=== PATIENT | female | born 1970 | race Caucasian/White ===

== ENCOUNTER 2016-12-16 00:23 | Observation (INO) | payer BC ==
--- NOTE | 2016-12-16 00:42 | EDM.PDOC ---
ED HPI GENERAL MEDICAL PROBLEM - General Chief Complaint: General Stated Complaint: UNRESPONSIVE- INTOXICATION Time Seen by Provider: 12/16/16 00:40 Source of Information: Reports: Patient, EMS - History of Present Illness INITIAL COMMENTS - FREE TEXT/NARRATIVE: Her daughter called an ambulance. EMS personnel report that the patient was found on her bed unresponsive. There was an empty bottle of vodka near the bed. There was no evidence of any trauma. There is no history of suspected suicide intent. There is no history of suspected drug overdose in. Patient does have a history of depression. She also has history of alcoholism. - Related Data Allergies Allergy/AdvReac Type Severity Reaction Status Date / Time No Known Allergies Allergy Verified 12/16/16 00:33 Home Meds: Home Meds . [Unable to Verify Home Med List] 12/16/16 [History] Doxepin [SINEquan] 2 cap PO BEDTIME 12/16/16 [History] Past Medical History Psychiatric History: Reports: Other (see below) (Alcoholism, depression) Social & Family History - Alcohol Use Alcohol Use Comment: Reported history of alcoholism. ED ROS GENERAL - Review of Systems Review Of Systems: See Below ED EXAM, GENERAL - Physical Exam Exam: See Below General Appearance: lethargic, other (She does mutter a few words that are difficult to understand her speech is slurred head is atraumatic neck is supple no evidence of extremity torso or head trauma lungs clear to auscultation. Heart regular rhythm without murmur. Abdomen nontender. She smells of alcohol.) Course - Vital Signs Last Recorded V/S: Last Vital Signs Temp 98.5 F 12/16/16 00:35 Pulse 68 12/16/16 02:30 Resp 16 12/16/16 02:30 BP 133/87 12/16/16 02:30 Pulse Ox 96 12/16/16 02:30 - Orders/Labs/Meds Orders: Active Orders 24 hr Category Date Time Status Head wo Cont [CT] Stat Exams 12/16/16 01:51 Taken MVI, Adult with Vitamin K [Infuvite Adult] 10 ml Med 12/16/16 00:57 Active Thiamine [Vitamin B-1] 100 mg Folic Acid 1 mg Sodium Chloride 0.9% [Normal Saline] 1,000 ml IV ONETIME Sodium Chloride 0.9% [Normal Saline] 1,000 ml Med 12/16/16 00:30 Active IV ASDIRECTED Medication Orders Bisacodyl (Dulcolax) 5 mg PO DAILY PRN PRN Reason: Constipation Sodium Chloride (Normal Saline) 1,000 mls @ 150 mls/hr IV ASDIRECTED NIDHI Last Admin: 12/16/16 00:48 Dose: 250 mls/hr Multivitamins/Minerals 10 ml/Thiamine HCl 100 mg/ Folic Acid 1 mg/ Sodium Chloride 1,011.2 mls @ 200 mls/hr IV ONETIME ONE Stop: 12/16/16 06:00 Last Admin: 12/16/16 01:44 Dose: 200 mls/hr Multivitamins/Minerals 10 ml/Thiamine HCl 100 mg/ Folic Acid 1 mg/ Sodium Chloride 1,011.2 mls @ 100 mls/hr IV QAM ONE Stop: 12/17/16 17:06 Ondansetron HCl (Zofran) 4 mg IVPUSH Q4H PRN PRN Reason: Nausea Labs: Laboratory Tests 12/16/16 12/16/16 12/16/16 Range/Units 00:49 00:49 00:55 WBC 8.37 (4.0-11.0) K/uL RBC 4.78 (4.30-5.90) M/uL Hgb 16.3 H (12.0-16.0) g/dL Hct 47.9 H (36.0-46.0) % MCV 100.2 H (80.0-98.0) fL MCH 34.1 H (27.0-32.0) pg MCHC 34.0 (31.0-37.0) g/dL RDW Std Deviation 52.7 (28.0-62.0) fl RDW Coeff of Kelly 14 (11.0-15.0) % Plt Count 187 (150-400) K/uL MPV 11.20 (7.40-12.00) fL Neut % (Auto) 78.2 (48.0-80.0) % Lymph % (Auto) 16.5 (16.0-40.0) % [place] % (Auto) 4.9 (0.0-15.0) % Eos % (Auto) 0.2 (0.0-7.0) % Baso % (Auto) 0.2 (0.0-1.5) % Neut # 6.5 H (1.4-5.7) K/uL Lymph # 1.4 (0.6-2.4) K/uL [place] # 0.4 (0.0-0.8) K/uL Eos # 0.0 (0.0-0.7) K/uL Baso # 0.0 (0.0-0.1) K/uL Nucleated RBC % 0.0 /100WBC Nucleated RBCs # 0 K/uL ABG pH (7.35-7.45) ABG pCO2 (35-45) mmHG ABG pO2 (75-100) mmHG ABG HCO3 (22-26) mEq/L ABG Total CO2 ABG Base Excess (-2.0-2.0) Sodium 141 (136-146) mmol/L Potassium 4.9 (3.5-5.1) mmol/L Chloride 107 (98-110) mmol/L Carbon Dioxide 18 L (21-31) mmol/L BUN 18 (6.0-23.0) mg/dL Creatinine 1.0 (0.6-1.5) mg/dL Est Cr Clr Drug Dosing 64.41 mL/min Estimated GFR (MDRD) 59.2 ml/min Glucose 106 (60-110) mg/dL Calcium 9.4 (8.8-10.8) mg/dL Total Bilirubin 0.6 (0.1-1.5) mg/dL AST 93 H (5-40) IU/L ALT 71 H (8-54) IU/L Alkaline Phosphatase 89 (40-150) Ammonia (14-68) UG/DL Total Protein 8.0 (6.0-8.0) g/dL Albumin 4.3 (3.5-5.0) g/dL Globulin 3.7 H (2.0-3.5) g/dL Albumin/Globulin Ratio 1.2 L (1.3-2.8) HCG, Qual NEGATIVE (NEG) Salicylates (0-20) mg/dL Urine Opiates Screen (NEGATIVE) Ur Oxycodone Screen (NEGATIVE) Urine Methadone Screen (NEGATIVE) Acetaminophen ug/mL Ur Barbiturates Screen (NEGATIVE) Ur Phencyclidine Scrn (NEGATIVE) Ur Amphetamine Screen (NEGATIVE) U Methamphetamines Scrn (NEGATIVE) U Benzodiazepines Scrn (NEGATIVE) U Cocaine Metab Screen (NEGATIVE) U Marijuana (THC) Screen (NEGATIVE) Ethyl Alcohol 24.1 mg/dL 12/16/16 12/16/16 12/16/16 Range/Units 01:10 02:47 02:47 WBC (4.0-11.0) K/uL RBC (4.30-5.90) M/uL Hgb (12.0-16.0) g/dL Hct (36.0-46.0) % MCV (80.0-98.0) fL MCH (27.0-32.0) pg MCHC (31.0-37.0) g/dL RDW Std Deviation (28.0-62.0) fl RDW Coeff of Kelly (11.0-15.0) % Plt Count (150-400) K/uL MPV (7.40-12.00) fL Neut % (Auto) (48.0-80.0) % Lymph % (Auto) (16.0-40.0) % [place] % (Auto) (0.0-15.0) % Eos % (Auto) (0.0-7.0) % Baso % (Auto) (0.0-1.5) % Neut # (1.4-5.7) K/uL Lymph # (0.6-2.4) K/uL [place] # (0.0-0.8) K/uL Eos # (0.0-0.7) K/uL Baso # (0.0-0.1) K/uL Nucleated RBC % /100WBC Nucleated RBCs # K/uL ABG pH (7.35-7.45) ABG pCO2 (35-45) mmHG ABG pO2 (75-100) mmHG ABG HCO3 (22-26) mEq/L ABG Total CO2 ABG Base Excess (-2.0-2.0) Sodium (136-146) mmol/L Potassium (3.5-5.1) mmol/L Chloride (98-110) mmol/L Carbon Dioxide (21-31) mmol/L BUN (6.0-23.0) mg/dL Creatinine (0.6-1.5) mg/dL Est Cr Clr Drug Dosing mL/min Estimated GFR (MDRD) ml/min Glucose (60-110) mg/dL Calcium (8.8-10.8) mg/dL Total Bilirubin (0.1-1.5) mg/dL AST (5-40) IU/L ALT (8-54) IU/L Alkaline Phosphatase (40-150) Ammonia 57 (14-68) UG/DL Total Protein (6.0-8.0) g/dL Albumin (3.5-5.0) g/dL Globulin (2.0-3.5) g/dL Albumin/Globulin Ratio (1.3-2.8) HCG, Qual (NEG) Salicylates < 5.0 (0-20) mg/dL Urine Opiates Screen NEGATIVE (NEGATIVE) Ur Oxycodone Screen NEGATIVE (NEGATIVE) Urine Methadone Screen NEGATIVE (NEGATIVE) Acetaminophen < 3.0 ug/mL Ur Barbiturates Screen NEGATIVE (NEGATIVE) Ur Phencyclidine Scrn NEGATIVE (NEGATIVE) Ur Amphetamine Screen NEGATIVE (NEGATIVE) U Methamphetamines Scrn NEGATIVE (NEGATIVE) U Benzodiazepines Scrn NEGATIVE (NEGATIVE) U Cocaine Metab Screen NEGATIVE (NEGATIVE) U Marijuana (THC) Screen NEGATIVE (NEGATIVE) Ethyl Alcohol mg/dL 12/16/16 Range/Units 03:00 WBC (4.0-11.0) K/uL RBC (4.30-5.90) M/uL Hgb (12.0-16.0) g/dL Hct (36.0-46.0) % MCV (80.0-98.0) fL MCH (27.0-32.0) pg MCHC (31.0-37.0) g/dL RDW Std Deviation (28.0-62.0) fl RDW Coeff of Kelly (11.0-15.0) % Plt Count (150-400) K/uL MPV (7.40-12.00) fL Neut % (Auto) (48.0-80.0) % Lymph % (Auto) (16.0-40.0) % [place] % (Auto) (0.0-15.0) % Eos % (Auto) (0.0-7.0) % Baso % (Auto) (0.0-1.5) % Neut # (1.4-5.7) K/uL Lymph # (0.6-2.4) K/uL [place] # (0.0-0.8) K/uL Eos # (0.0-0.7) K/uL Baso # (0.0-0.1) K/uL Nucleated RBC % /100WBC Nucleated RBCs # K/uL ABG pH 7.385 (7.35-7.45) ABG pCO2 35 (35-45) mmHG ABG pO2 76 (75-100) mmHG ABG HCO3 21 L (22-26) mEq/L ABG Total CO2 18.2 ABG Base Excess -3.8 L (-2.0-2.0) Sodium (136-146) mmol/L Potassium (3.5-5.1) mmol/L Chloride (98-110) mmol/L Carbon Dioxide (21-31) mmol/L BUN (6.0-23.0) mg/dL Creatinine (0.6-1.5) mg/dL Est Cr Clr Drug Dosing mL/min Estimated GFR (MDRD) ml/min Glucose (60-110) mg/dL Calcium (8.8-10.8) mg/dL Total Bilirubin (0.1-1.5) mg/dL AST (5-40) IU/L ALT (8-54) IU/L Alkaline Phosphatase (40-150) Ammonia (14-68) UG/DL Total Protein (6.0-8.0) g/dL Albumin (3.5-5.0) g/dL Globulin (2.0-3.5) g/dL Albumin/Globulin Ratio (1.3-2.8) HCG, Qual (NEG) Salicylates (0-20) mg/dL Urine Opiates Screen (NEGATIVE) Ur Oxycodone Screen (NEGATIVE) Urine Methadone Screen (NEGATIVE) Acetaminophen ug/mL Ur Barbiturates Screen (NEGATIVE) Ur Phencyclidine Scrn (NEGATIVE) Ur Amphetamine Screen (NEGATIVE) U Methamphetamines Scrn (NEGATIVE) U Benzodiazepines Scrn (NEGATIVE) U Cocaine Metab Screen (NEGATIVE) U Marijuana (THC) Screen (NEGATIVE) Ethyl Alcohol mg/dL Meds: Medications Generic Name Dose Route Start Last Admin Trade Name Freq PRN Reason Stop Dose Admin Bisacodyl 5 mg 12/16/16 03:20 Dulcolax PO DAILY PRN Constipation Sodium Chloride 1,000 mls @ 150 mls/hr 12/16/16 00:30 12/16/16 00:48 Normal Saline IV 250 mls/hr ASDIRECTED NIDHI Administration Multivitamins/Minerals 10 ml/ 1,011.2 mls @ 200 mls/hr 12/16/16 00:57 01:44 Thiamine HCl 100 mg/ Folic IV 12/16/16 06:00 200 mls/hr Acid 1 mg/ Sodium Chloride ONETIME ONE Administration Multivitamins/Minerals 10 ml/ 1,011.2 mls @ 100 mls/hr 12/17/16 07:00 Thiamine HCl 100 mg/ Folic IV 12/17/16 17:06 Acid 1 mg/ Sodium Chloride QAM ONE Ondansetron HCl 4 mg 12/16/16 03:20 Zofran IVPUSH Q4H PRN Nausea - Re-Assessments/Exams Free Text/Narrative Re-Assessment/Exam: 12/16/16 02:44 Her blood alcohol was noted to only be 24. She is a little more alert. She is confused. She has slurred speech. She has normal oxygenation. Will check Tylenol level. Will check ABG. We'll check serum ammonia. Head CT. Anticipate admission to observation in ICU. Departure - Departure Time of Disposition: 03:28 Disposition: Refer to Observation Clinical Impression: Alcohol intoxication - My Orders Last 24 Hours: My Active Orders 12/16/16 00:30 Sodium Chloride 0.9% [Normal Saline] 1,000 ml IV ASDIRECTED 12/16/16 00:57 MVI, Adult with Vitamin K [Infuvite Adult] 10 ml Thiamine [Vitamin B-1] 100 mg Folic Acid 1 mg Sodium Chloride 0.9% [Normal Saline] 1,000 ml IV ONETIME 12/16/16 01:51 Head wo Cont [CT] Stat - Assessment/Plan Last 24 Hours: My Active Orders 12/16/16 00:30 Sodium Chloride 0.9% [Normal Saline] 1,000 ml IV ASDIRECTED 12/16/16 00:57 MVI, Adult with Vitamin K [Infuvite Adult] 10 ml Thiamine [Vitamin B-1] 100 mg Folic Acid 1 mg Sodium Chloride 0.9% [Normal Saline] 1,000 ml IV ONETIME 12/16/16 01:51 Head wo Cont [CT] Stat
[2016-12-16] MEDS: Sodium Chloride 0.9% 1,000 ML IV SCH ×2 (00:48→11:26)
[2016-12-16] MEDS ORDERED: MVI, Adult with Vitamin K 10 ML, Thiamine 100 MG, Folic Acid 1 MG in Sodium Chloride 0.... IV ONE ×4 (00:57)
--- NOTE | 2016-12-16 03:10 | PCM.HP ---
H&P History of Present Illness - General Date of Service: 12/16/16 Source of Information: EMS, Family, Old records, RN - History of Present Illness Initial Comments - Free Text/Narative: She was found at home by her daughter. She was unresponsive on her bed. A bottle of vodka was found near her bed. There was no suspected trauma. There was not suspected suicide attempt or ingestion of other substances. However, in the ER it was noted that her blood alcohol was only 24. She smelled of alcohol and appeared clinically to have alcohol intoxication. She has a reported history of depression and alcoholism. - Related Data Allergies/Adverse Reactions: Allergies Allergy/AdvReac Type Severity Reaction Status Date / Time No Known Allergies Allergy Verified 12/16/16 00:33 Home Medications: Home Meds . [Unable to Verify Home Med List] 12/16/16 [History] Doxepin [SINEquan] 2 cap PO BEDTIME 12/16/16 [History] Past Medical History - Past Health History Medical/Surgical History: Denies Medical/Surgical History Other Cardiovascular History: Bradycardia Gastrointestinal History: Reports: PUD Psychiatric History: Reports: Other (see below) (Alcoholism, depression) Oncologic (Cancer) History: Reports: Other (see below) (cancer left eye) - Past Surgical History HEENT Surgical History: Reports: Eye surgery Other HEENT Surgeries/Procedures: Implant portion of right eye GI Surgical History: Reports: Other (see below) (laparotomy for "perforated ulcer") Other GI Surgeries/Procedures: abdominal surgery for ulcer Social & Family History - Family History Family Medical History: Noncontributory - Tobacco Use Smoking Status *Q: Current Every Day Smoker Years of Tobacco use: 25 Packs/Tins Daily: 1 - Caffeine Use Caffeine Use: Reports: None - Alcohol Use Days Per Week of Alcohol Use: 7 Number of Drinks Per Day: 4 Total Drinks Per Week: 28 - Recreational Drug Use Recreational Drug Use: No H&P Review of Systems - Review of Systems: Review Of Systems: Unable To Obtain Exam - Exam Exam: See Below - Vital Signs Vital Signs: Last Vital Signs Temp 98.5 F 12/16/16 00:35 Pulse 68 12/16/16 01:47 Resp 16 12/16/16 01:47 BP 123/81 12/16/16 01:47 Pulse Ox 94 L 12/16/16 01:47 Weight: 171.7 kg - Exam Quality Assessment: No: skin breakdown General: lethargic. No: alert, oriented HEENT: Mucosa moist & pink. No: Abnormal pupils, PERRLA (irregularly shaped left pupil) Neck: supple, trachea midline Lungs: Clear to auscultation, Normal respiratory effort Cardiovascular: regular rate, regular rhythm Abdomen: soft. No: tenderness Rectal (Female) Exam: Deferred Extremities: No: clubbing, cyanosis, edema Neurological: other (nystagmus noted). No: normal speech (slurred speech ) - Patient Data Lab Results last 24 hrs: Laboratory Results - last 24 hr 12/16/16 12/16/16 12/16/16 Range/Units 00:49 00:49 00:55 WBC 8.37 (4.0-11.0) K/uL RBC 4.78 (4.30-5.90) M/uL Hgb 16.3 H (12.0-16.0) g/dL Hct 47.9 H (36.0-46.0) % MCV 100.2 H (80.0-98.0) fL MCH 34.1 H (27.0-32.0) pg MCHC 34.0 (31.0-37.0) g/dL RDW Std Deviation 52.7 (28.0-62.0) fl RDW Coeff of Kelly 14 (11.0-15.0) % Plt Count 187 (150-400) K/uL MPV 11.20 (7.40-12.00) fL Neut % (Auto) 78.2 (48.0-80.0) % Lymph % (Auto) 16.5 (16.0-40.0) % [place] % (Auto) 4.9 (0.0-15.0) % Eos % (Auto) 0.2 (0.0-7.0) % Baso % (Auto) 0.2 (0.0-1.5) % Neut # 6.5 H (1.4-5.7) K/uL Lymph # 1.4 (0.6-2.4) K/uL [place] # 0.4 (0.0-0.8) K/uL Eos # 0.0 (0.0-0.7) K/uL Baso # 0.0 (0.0-0.1) K/uL Nucleated RBC % 0.0 /100WBC Nucleated RBCs # 0 K/uL Sodium 141 (136-146) mmol/L Potassium 4.9 (3.5-5.1) mmol/L Chloride 107 (98-110) mmol/L Carbon Dioxide 18 L (21-31) mmol/L BUN 18 (6.0-23.0) mg/dL Creatinine 1.0 (0.6-1.5) mg/dL Est Cr Clr Drug Dosing 64.41 mL/min Estimated GFR (MDRD) 59.2 ml/min Glucose 106 (60-110) mg/dL Calcium 9.4 (8.8-10.8) mg/dL Total Bilirubin 0.6 (0.1-1.5) mg/dL AST 93 H (5-40) IU/L ALT 71 H (8-54) IU/L Alkaline Phosphatase 89 (40-150) Total Protein 8.0 (6.0-8.0) g/dL Albumin 4.3 (3.5-5.0) g/dL Globulin 3.7 H (2.0-3.5) g/dL Albumin/Globulin Ratio 1.2 L (1.3-2.8) HCG, Qual NEGATIVE (NEG) Urine Opiates Screen (NEGATIVE) Ur Oxycodone Screen (NEGATIVE) Urine Methadone Screen (NEGATIVE) Ur Barbiturates Screen (NEGATIVE) Ur Phencyclidine Scrn (NEGATIVE) Ur Amphetamine Screen (NEGATIVE) U Methamphetamines Scrn (NEGATIVE) U Benzodiazepines Scrn (NEGATIVE) U Cocaine Metab Screen (NEGATIVE) U Marijuana (THC) Screen (NEGATIVE) Ethyl Alcohol 24.1 mg/dL 12/16/16 Range/Units 01:10 WBC (4.0-11.0) K/uL RBC (4.30-5.90) M/uL Hgb (12.0-16.0) g/dL Hct (36.0-46.0) % MCV (80.0-98.0) fL MCH (27.0-32.0) pg MCHC (31.0-37.0) g/dL RDW Std Deviation (28.0-62.0) fl RDW Coeff of Kelly (11.0-15.0) % Plt Count (150-400) K/uL MPV (7.40-12.00) fL Neut % (Auto) (48.0-80.0) % Lymph % (Auto) (16.0-40.0) % [place] % (Auto) (0.0-15.0) % Eos % (Auto) (0.0-7.0) % Baso % (Auto) (0.0-1.5) % Neut # (1.4-5.7) K/uL Lymph # (0.6-2.4) K/uL [place] # (0.0-0.8) K/uL Eos # (0.0-0.7) K/uL Baso # (0.0-0.1) K/uL Nucleated RBC % /100WBC Nucleated RBCs # K/uL Sodium (136-146) mmol/L Potassium (3.5-5.1) mmol/L Chloride (98-110) mmol/L Carbon Dioxide (21-31) mmol/L BUN (6.0-23.0) mg/dL Creatinine (0.6-1.5) mg/dL Est Cr Clr Drug Dosing mL/min Estimated GFR (MDRD) ml/min Glucose (60-110) mg/dL Calcium (8.8-10.8) mg/dL Total Bilirubin (0.1-1.5) mg/dL AST (5-40) IU/L ALT (8-54) IU/L Alkaline Phosphatase (40-150) Total Protein (6.0-8.0) g/dL Albumin (3.5-5.0) g/dL Globulin (2.0-3.5) g/dL Albumin/Globulin Ratio (1.3-2.8) HCG, Qual (NEG) Urine Opiates Screen NEGATIVE (NEGATIVE) Ur Oxycodone Screen NEGATIVE (NEGATIVE) Urine Methadone Screen NEGATIVE (NEGATIVE) Ur Barbiturates Screen NEGATIVE (NEGATIVE) Ur Phencyclidine Scrn NEGATIVE (NEGATIVE) Ur Amphetamine Screen NEGATIVE (NEGATIVE) U Methamphetamines Scrn NEGATIVE (NEGATIVE) U Benzodiazepines Scrn NEGATIVE (NEGATIVE) U Cocaine Metab Screen NEGATIVE (NEGATIVE) U Marijuana (THC) Screen NEGATIVE (NEGATIVE) Ethyl Alcohol mg/dL Result Diagrams: 12/16/16 00:49 12/16/16 00:49 Jaleel Results last 24 hrs: EKG: sinus rhythm with non specific ST segment changes; borderline prolongation of QRS *Q Meaningful Use (ADM) - VTE *Q VTE Criteria *Q: - Stroke *Q Stroke Criteria *Q: - AMI *Q AMI Criteria *Q: - Problem List (1) Alcohol intoxication SNOMED Code(s): 61384169 ICD Code: F10.129 - ALCOHOL ABUSE WITH INTOXICATION, UNSPECIFIED Status: Acute Current Visit: Yes (2) Drug overdose SNOMED Code(s): 49762203 ICD Code: T50.901A - POISONING BY UNSP DRUG/MEDS/BIOL SUBST, ACCIDENTAL, INIT Status: Acute Current Visit: Yes (3) Increased anion gap metabolic acidosis SNOMED Code(s): 24282277 ICD Code: E87.2 - ACIDOSIS Status: Acute Current Visit: Yes Problem List Initiated/Reviewed/Updated: Yes Orders Last 24hrs: Active Orders 24 hr Category Date Time Status Head wo Cont [CT] Stat Exams 12/16/16 01:51 Taken ABG [BLOOD GAS ARTERIAL] [BG] Stat Lab 12/16/16 02:46 Ordered ACETAMINOPHEN [CHEM] Stat Lab 12/16/16 02:46 Ordered AMMONIA VENOUS [CHEM] Stat Lab 12/16/16 02:39 Ordered SALICYLATE [CHEM] Stat Lab 12/16/16 02:47 Ordered MVI, Adult with Vitamin K [Infuvite Adult] 10 ml Med 12/16/16 00:57 Active Thiamine [Vitamin B-1] 100 mg Folic Acid 1 mg Sodium Chloride 0.9% [Normal Saline] 1,000 ml IV ONETIME Sodium Chloride 0.9% [Normal Saline] 1,000 ml Med 12/16/16 00:30 Active IV ASDIRECTED Medication Orders Sodium Chloride (Normal Saline) 1,000 mls @ 250 mls/hr IV ASDIRECTED NIDHI Last Admin: 12/16/16 00:48 Dose: 250 mls/hr Multivitamins/Minerals 10 ml/Thiamine HCl 100 mg/ Folic Acid 1 mg/ Sodium Chloride 1,011.2 mls @ 200 mls/hr IV ONETIME ONE Stop: 12/16/16 06:00 Last Admin: 12/16/16 01:44 Dose: 200 mls/hr Assessment/Plan Comment:: I suspect that she has also had a drug overdose. She has with her in her bag bottles of lorazepam, doxepin and duloxetine, and propranolol. I notice that her lorazepam bottle is empty I suspect a benzodiazepene over dose with alcohol co ingestion. salicylate/acetaminophen levels drawn to ICU cardiac monitoring
[2016-12-16] MEDS ORDERED: Ondansetron 4 MG/2 ML SDV IVPUSH PRN (03:20)
[2016-12-16] MEDS ORDERED: Bisacodyl 5 MG Tab PO PRN (03:20)
[2016-12-16 03:25] LABS: ACETAMINOPHEN < 3.0 ug/mL
[2016-12-16 06:06] LABS: CHLORIDE,CL 110 mmol/L (98-110); SODIUM,NA 142 mmol/L (136-146)
[2016-12-16] MEDS ORDERED: LORazepam 1 MG Tab PO PRN (11:10)
[2016-12-16] MEDS: LORazepam 2 MG/ML MDV IV PRN ×3 (14:08→18:08)
--- NOTE | 2016-12-16 16:07 | CT ---
EXAM DATE: 12/16/16 PATIENT'S AGE: 46 Patient: CHUCHO HOLLOWAY Facility: [place], [place] Site . Site : [id number] Study: CT Head [id number]/28/2017 2:33:14 AM Ordering Physician: Amando Verma Final Report: INDICATION: Change in mental status TECHNIQUE: CT head without contrast. COMPARISON: None FINDINGS: CSF spaces: Within normal limits for age. Brain parenchyma: The see-white differentiation is normal. No sign of mass, hemorrhage, or midline shift. Skull base and calvarium: Maxillary sinus mucosal thickening The visualized orbits are grossly unremarkable. No skull fractures. IMPRESSION: No acute intracranial abnormalities. Dictated by Dejon Reese MD @ 12/16/2016 2:35:55 AM Dictated by: Dejon Reese MD @ 12/16/2016 02:36:00 (Electronic Signature) Report Signed by Proxy and Original Signed Document filed in the Medical Record. [facility]
--- NOTE | 2016-12-16 16:09 | US ---
EXAMINATION: Right upper quadrant ultrasound HISTORY: Liver disease COMPARISON: None TECHNIQUE: Grayscale and color Doppler images obtained of the right upper quadrant. FINDINGS: The liver is mildly increased in generalized echotexture without a focal hepatic mass. The gallbladder wall thickness is normal. No pericholecystic fluid or shadowing gallstones. Common bile duct measures 2 mm. The sonographic Cao sign is negative. Right kidney measures 9.5 cm pole-to-p ole without evidence of hydronephrosis. No abdominal ascites. IMPRESSION: 1. Mildly echogenic liver, consistent with fatty infiltration versus hepatocellular disease.
[2016-12-16] MEDS ORDERED: Magnesium Sulfate/Water 2 GM in Premix Bag 1 BAG IV ONE (19:00)
[2016-12-17] MEDS: Sodium Chloride 0.9% 1,000 ML IV SCH (02:20)
[2016-12-17 05:51] LABS: CHLORIDE,CL 108 mmol/L (98-110); SODIUM,NA 138 mmol/L (136-146)
[2016-12-17] MEDS ORDERED: MVI, Adult with Vitamin K 10 ML, Thiamine 100 MG, Folic Acid 1 MG in Sodium Chloride 0.... IV ONE ×4 (07:00)
[2016-12-17 08:41] VITALS: BP 130/80
[2016-12-17] MEDS ORDERED: Folic Acid 1 MG Tab PO SCH (09:00)
--- NOTE | 2016-12-17 17:29 | PCM.SN ---
- Free Text/Narrative Note: [id number]
--- NOTE | 2016-12-18 16:18 | DISCH ---
DATE OF DISCHARGE: 12/17/2016 PRIMARY CARE PHYSICIAN: None PCP CHIEF COMPLAINT: Unresponsiveness. The patient was admitted in a hospital due to alteration in the mental status. HISTORY OF PRESENT ILLNESS: The patient was found at home by daughter. She was unresponsive in her bed. A bottle of vodka was found near to her bed. There was no suspected trauma. There was no suspected suicide attempt or ingestion of other substances. However, in the ER, it was noted that her blood alcohol level was 24. She has reported history of depression and alcoholic. The patient was in treatment for alcohol abuse.She drinks daily vodka HOSPITAL COURSE: The patient was admitted in the hospital and was treated for alcohol withdrawal. She had a CIWA code of 19 and she was treated with CIWA protocol and her CIWA scoring improved to 6 and today, the patient was stable for discharge. She was discharged home and she was given referral to an outpatient treatment. She had social work consult. PHYSICAL EXAMINATION: HEENT: Head is normocephalic and atraumatic. Pupils are equal and reactive to light. NECK: Supple. No thyromegaly and no lymphadenopathy. HEART: S1 and S2. Regular rate and rhythm. No murmur. ABDOMEN: Soft and nontender. Positive bowel sounds. EXTREMITIES: No edema. VITAL SIGNS: Temperature 98, pulse 73, blood pressure 130/80, and respiratory rate of 18, and O2 saturation 96% in 2L. LABORATORY DATA at discharge She had a WBC of 7.91, hemoglobin 12.9, MCV 100, and hematocrit was 38.7, and platelet count was 134. Her chemistry show, sodium of 138, potassium 3.8, chloride 108, CO2 was 22, BUN 7, GFR 92, and calcium 8.1. Urine toxicology was done at admission and was negative. The patient also had a test which was negative. Folate was more then 80. Vitamin B12 was 445. DISCHARGE CONDITION: Stable. DISCHARGE DIET: The patient was recommended regular diet and she was discharged home to followup with PCP. She was also given referral for outpatient therapy for alcohol abuse ACTIVITY: As tolerated. Patient may shower. ANTOPET / MODL /[id number] ELANA
== END 2016-12-17 12:20 | disposition home or self-care (01) ==
LOC: MW.ED 00:23 → MW.ICU 03:01 → MW.MS 13:08
PROVIDERS: ADMIT Family Medicine; ATTEND Family Medicine
DX: F10.129 Alcohol abuse with intoxication, unspecified (principal); E87.2 Acidosis; Z79.899 Other long term (current) drug therapy; Z98.890 Other specified postprocedural states; F17.210 Nicotine dependence, cigarettes, uncomplicated
CPT/HCPCS: 36415; 36600; 70450; 76705; 80048; 80053; 82140; 82607; 82746; 82803; 83735; 84703; 85025; 93005; 96361; 96365; 96366; 96367; 96375; 96376; 99285; A9270; G0378; G0478; G0479; G0480; J2060; J2405; J3411; J3475; J7040; 80305; 99283

== ENCOUNTER → 2016-12-24 | Outpatient (CLI) | payer BC ==
[2016-12-24 11:14] LABS: CHLORIDE,CL 99 mmol/L (98-110); SODIUM,NA 139 mmol/L (136-146)
== END ==
LOC: MW.CHFP 10:41
PROVIDERS: ATTEND Nurse Practitioner Family
DX: Z00.00 Encounter for general adult medical examination without abnormal findings (principal); I10 Essential (primary) hypertension
CPT/HCPCS: 36415; 80053; 80074

== ENCOUNTER 2022-04-14 10:45 | Inpatient (IN) | payer BC ==
[2022-04-14] MEDS ORDERED: Sodium Chloride 0.9% 10 ML Syringe FLUSH PRN ×2 (10:56→16:36)
[2022-04-14] MEDS ORDERED: Sodium Chloride 0.9% 2.5 ML Syringe FLUSH PRN ×2 (10:56→16:36)
[2022-04-14] MEDS ORDERED: Sodium Chloride 0.9% 1,000 ML IV ONE (10:56)
[2022-04-14] MEDS ORDERED: Albuterol/Ipratropium 3.0-0.5 MG/3 ML Neb Soln NEB ONE (10:57)
[2022-04-14] MEDS ORDERED: Dexamethasone 10 MG/ML SDV IVPUSH ONE (10:58)
[2022-04-14 12:06] LABS: CARBON DIOXIDE,CO2 35.5 mmol/L (21.0-32.0); POTASSIUM,K 3.2 mmol/L (3.5-5.1)
[2022-04-14] MEDS ORDERED: Aspirin 81 MG Tab.Chew PO ONE (12:14)
[2022-04-14] MEDS ORDERED: Iopamidol 755 MG/ML 500 ML Multipack Bottle IVPUSH STA (13:08)
[2022-04-14] MEDS ORDERED: Potassium Chloride 20 MEQ Tab.ER PO ONE (13:12)
[2022-04-14 13:14] LABS: CORONAVIRUS COVID-19 NAA NEGATIVE (NEGATIVE); INFLUENZA A NAA NEGATIVE (NEGATIVE); INFLUENZA B NAA NEGATIVE (NEGATIVE)
[2022-04-14] MEDS ORDERED: cefTRIAXone 1 GM in Sodium Chloride 0.9% 50 ML IV ONE ×2 (15:21→18:00)
[2022-04-14] MEDS ORDERED: Doxycycline 100 MG in Sodium Chloride 0.9% 100 ML IV STA (15:21)
[2022-04-14] MEDS ORDERED: Docusate Sodium 100 MG Cap PO PRN (16:36)
[2022-04-14] MEDS ORDERED: Ondansetron 4 MG/2 ML SDV IVPUSH PRN (16:36)
[2022-04-14] MEDS ORDERED: Acetaminophen 325 MG Tab PO PRN (16:36)
[2022-04-14] MEDS ORDERED: Lactated Ringers 1,000 ML IV SCH (16:45)
[2022-04-14] MEDS ORDERED: Enoxaparin 40 MG/0.4 ML Syringe SUBCUT SCH (16:45)
[2022-04-14] MEDS: Albuterol/Ipratropium 3.0-0.5 MG/3 ML Neb Soln NEB SCH ×2 (18:02→22:43)
[2022-04-14] MEDS: Enoxaparin 40 MG/0.4 ML Syringe SUBCUT SCH (18:02)
[2022-04-14] MEDS: Benzonatate 100 MG Cap PO PRN (18:19)
[2022-04-14] MEDS ORDERED: Doxycycline 100 MG in Sodium Chloride 0.9% 100 ML IV ONE (18:30)
[2022-04-14] MEDS: Lactated Ringers 1,000 ML IV SCH (18:35)
[2022-04-14] MEDS: methylPREDNISolone Sodium Succinate 40 MG/1 ML SDV IVPUSH SCH (18:55)
[2022-04-14] MEDS ORDERED: Doxycycline 100 MG in Sodium Chloride 0.9% 100 ML IV SCH (22:00)
[2022-04-15] MEDS: Benzonatate 100 MG Cap PO PRN ×2 (01:59→23:43)
[2022-04-15] MEDS: Albuterol/Ipratropium 3.0-0.5 MG/3 ML Neb Soln NEB SCH ×6 (02:00→22:10)
[2022-04-15] MEDS: methylPREDNISolone Sodium Succinate 40 MG/1 ML SDV IVPUSH SCH ×2 (02:00→11:23)
[2022-04-15] MEDS: Lactated Ringers 1,000 ML IV SCH ×2 (02:54→15:12)
[2022-04-15] MEDS: Doxycycline 100 MG in Sodium Chloride 0.9% 100 ML IV SCH ×2 (05:47→18:24)
[2022-04-15 06:48] LABS: CARBON DIOXIDE,CO2 30.4 mmol/L (21.0-32.0); POTASSIUM,K 4.1 mmol/L (3.5-5.1)
[2022-04-15] MEDS ORDERED: Magnesium Sulfate/Water 4 GM in Premix Bag 1 BAG IV ONE (07:51)
[2022-04-15] MEDS: buPROPion 150 MG Tab.ER PO SCH (08:11)
[2022-04-15] MEDS: Propranolol 80 MG Cap.ER PO SCH (08:11)
[2022-04-15] MEDS ORDERED: Desvenlafaxine [Desvenlafaxine Er] 100 MG Tab.Er.24h PO SCH (09:00)
[2022-04-15] MEDS ORDERED: Nicotine Polacrilex 4 MG Gum BUCCAL PRN (11:40)
[2022-04-15] MEDS ORDERED: cefTRIAXone 1 GM in Sodium Chloride 0.9% 50 ML IV SCH ×2 (12:00→18:00)
[2022-04-15] MEDS ORDERED: methylPREDNISolone Sodium Succinate 40 MG/1 ML SDV IVPUSH SCH ×2 (14:00→23:00)
[2022-04-15] MEDS: Enoxaparin 40 MG/0.4 ML Syringe SUBCUT SCH (17:45)
[2022-04-15] MEDS: Doxepin 10 MG Cap PO SCH (22:23)
[2022-04-16] MEDS: Albuterol/Ipratropium 3.0-0.5 MG/3 ML Neb Soln NEB SCH ×6 (01:47→21:52)
[2022-04-16] MEDS: Lactated Ringers 1,000 ML IV SCH ×2 (01:47→01:50)
[2022-04-16] MEDS: Doxycycline 100 MG in Sodium Chloride 0.9% 100 ML IV SCH ×2 (05:40→18:16)
[2022-04-16 06:14] LABS: CARBON DIOXIDE,CO2 34.3 mmol/L (21.0-32.0); POTASSIUM,K 3.8 mmol/L (3.5-5.1)
[2022-04-16] MEDS: Pantoprazole 40 MG Tab.CR PO SCH (08:10)
[2022-04-16] MEDS: buPROPion 150 MG Tab.ER PO SCH (08:11)
[2022-04-16] MEDS: Propranolol 80 MG Cap.ER PO SCH (08:21)
[2022-04-16 09:07] LABS: BORDETELLA PARAPERT IS1001 Not Detected (Not Detected)
[2022-04-16] MEDS ORDERED: methylPREDNISolone Sodium Succinate 40 MG/1 ML SDV IVPUSH SCH (09:45)
[2022-04-16] MEDS: Benzonatate 100 MG Cap PO PRN ×2 (10:34→21:52)
[2022-04-16] MEDS: Enoxaparin 40 MG/0.4 ML Syringe SUBCUT SCH (17:08)
[2022-04-16] MEDS: Cefepime 2 GM in Premix Bag 1 BAG IV SCH (17:09)
[2022-04-16] MEDS: Doxepin 10 MG Cap PO SCH (20:33)
[2022-04-17] MEDS: Cefepime 2 GM in Premix Bag 1 BAG IV SCH ×3 (01:07→16:09)
[2022-04-17] MEDS: Albuterol/Ipratropium 3.0-0.5 MG/3 ML Neb Soln NEB SCH ×6 (01:07→21:44)
[2022-04-17] MEDS: Doxycycline 100 MG in Sodium Chloride 0.9% 100 ML IV SCH ×2 (05:58→17:45)
[2022-04-17 06:31] LABS: CARBON DIOXIDE,CO2 31.5 mmol/L (21.0-32.0); POTASSIUM,K 3.7 mmol/L (3.5-5.1)
[2022-04-17] MEDS: Pantoprazole 40 MG Tab.CR PO SCH (06:45)
[2022-04-17] MEDS: buPROPion 150 MG Tab.ER PO SCH (09:19)
[2022-04-17] MEDS: Propranolol 80 MG Cap.ER PO SCH (09:20)
[2022-04-17] MEDS: Enoxaparin 40 MG/0.4 ML Syringe SUBCUT SCH (17:45)
[2022-04-17] MEDS: Doxepin 10 MG Cap PO SCH (20:35)
[2022-04-18] MEDS: Cefepime 2 GM in Premix Bag 1 BAG IV SCH ×2 (01:34→08:13)
[2022-04-18] MEDS: Albuterol/Ipratropium 3.0-0.5 MG/3 ML Neb Soln NEB SCH ×6 (01:34→21:23)
[2022-04-18 06:18] LABS: CARBON DIOXIDE,CO2 30.1 mmol/L (21.0-32.0); POTASSIUM,K 3.7 mmol/L (3.5-5.1)
[2022-04-18] MEDS: Pantoprazole 40 MG Tab.CR PO SCH (06:30)
[2022-04-18] MEDS: Doxycycline 100 MG in Sodium Chloride 0.9% 100 ML IV SCH (06:30)
[2022-04-18] MEDS: buPROPion 150 MG Tab.ER PO SCH (08:12)
[2022-04-18] MEDS: Propranolol 80 MG Cap.ER PO SCH (08:13)
[2022-04-18] MEDS ORDERED: Amoxicillin/Clavulanate K 875-125 MG Tab ONE (10:10)
[2022-04-18] MEDS: Amoxicillin/Clavulanate K 875-125 MG Tab PO SCH ×2 (10:13→20:13)
[2022-04-18] MEDS: Enoxaparin 40 MG/0.4 ML Syringe SUBCUT SCH (18:34)
[2022-04-18] MEDS: Doxepin 10 MG Cap PO SCH (20:13)
[2022-04-18] MEDS: Benzonatate 100 MG Cap PO PRN (23:11)
[2022-04-19] MEDS: Albuterol/Ipratropium 3.0-0.5 MG/3 ML Neb Soln NEB SCH ×3 (01:28→09:48)
[2022-04-19 06:33] LABS: POTASSIUM,K 3.9 mmol/L (3.5-5.1)
[2022-04-19] MEDS: Pantoprazole 40 MG Tab.CR PO SCH (06:34)
[2022-04-19] MEDS: buPROPion 150 MG Tab.ER PO SCH (08:47)
[2022-04-19] MEDS: Amoxicillin/Clavulanate K 875-125 MG Tab PO SCH (08:47)
[2022-04-19] MEDS: Propranolol 80 MG Cap.ER PO SCH (08:47)
[2022-04-19 08:54] VITALS: BP 90/43; PULSE 77
== END 2022-04-19 12:45 | disposition home or self-care (01) | DRG 139 ==
LOC: MW.ED 10:45 → MW.MS 16:29 → MW.ICU 17:39 → MW.MS 04-16 12:17
PROVIDERS: ADMIT Internal Medicine; ATTEND Internal Medicine
DX: J18.9 Pneumonia, unspecified organism (principal); J96.01 Acute respiratory failure with hypoxia; J44.0 Chronic obstructive pulmonary disease with (acute) lower respiratory infection; J44.1 Chronic obstructive pulmonary disease with (acute) exacerbation; F41.9 Anxiety disorder, unspecified; F32.A Depression, unspecified; Z20.822 Contact with and (suspected) exposure to COVID-19; G43.909 Migraine, unspecified, not intractable, without status migrainosus; E87.6 Hypokalemia; R77.8 Other specified abnormalities of plasma proteins; Z79.899 Other long term (current) drug therapy
CPT/HCPCS: 0240U; 36415; 71045; 71045-26; 71275; 71275-26; 80048; 80053; 82803; 83735; 84484; 84703; 85025; 85379; 87040; 87070; 87077; 87147; 87186; 87205; 87486; 87581; 87633; 87641; 87798; 87899; 93005; 93010; 94640; 94667; 96374; 99223; 99232; 99238; 99284; 99285-25; A9270-GY; J0692; J0696; J1100; J1650; J2920; J3475; J3490; J7030; J7120; J7620-GY; Q9967